=== PATIENT | female | born 1975 | race Hispanic/Latino ===

== ENCOUNTER → 2017-07-03 | Outpatient (CLI) | payer OTHER | LOC: RAH 08:36 | PROVIDERS: ATTEND Nurse Practitioner Family | DX: Z12.31 Encounter for screening mammogram for malignant neoplasm of breast (principal) | CPT/HCPCS: 77067 ==

== ENCOUNTER → 2020-09-28 | Outpatient (CLI) | payer OTHER | END | disposition home or self-care (01) | LOC: RAH 15:08 | PROVIDERS: ATTEND Physician Assistant Medical | DX: Z12.31 Encounter for screening mammogram for malignant neoplasm of breast (principal); Z00.01 Encounter for general adult medical examination with abnormal findings | CPT/HCPCS: 77067 ==

== ENCOUNTER → 2021-10-02 | Outpatient (CLI) | payer OTHER | END | disposition home or self-care (01) | LOC: RAH 09:45 | PROVIDERS: ATTEND Family Medicine | DX: Z12.31 Encounter for screening mammogram for malignant neoplasm of breast (principal) | CPT/HCPCS: 77067 ==

== ENCOUNTER → 2023-10-07 | Outpatient (CLI) | payer OTHER | END | disposition home or self-care (01) | LOC: RAH 10:26 | PROVIDERS: ATTEND Nurse Practitioner Family | DX: Z12.31 Encounter for screening mammogram for malignant neoplasm of breast (principal) | CPT/HCPCS: 77067 ==

== ENCOUNTER → 2024-09-28 | Outpatient (CLI) | payer OTHER ==
--- NOTE | 2024-09-28 15:31 | HMCIMG ---
MR SHOULDER LEFT WO HISTORY: Left shoulder impingement syndrome COMPARISON: None TECHNIQUE: MRI of the left shoulder was performed utilizing multiple pulse sequences in axial, coronal and sagittal planes. Patient was not given contrast through intravenous route. FINDINGS: Subchondral cyst formation is seen at the superolateral aspect. Hypertrophic degenerative changes are seen of the acromioclavicular joint. There is downward sloping of acromion in a medial to lateral direction encroaching upon the rotator cuff tendon and muscles. There is rotator cuff tendinosis with partial undersurface tear there are findings suspicious for subtle computer-aided of tendon tear. Tiny fluid is seen in the subacromial-subdeltoid bursa complex. If needed, MR arthrogram helpful. The glenoid labrum is intact. Bicipital tendon is seen within its groove. No appreciable amount of joint effusion is seen. IMPRESSION: 1. There is rotator cuff tendinosis with partial undersurface tear there are findings suspicious for subtle computer-aided of tendon tear. Tiny fluid is seen in the subacromial-subdeltoid bursa complex. If needed, MR arthrogram helpful. Subchondral cyst formations are seen involving the humeral head
== END | disposition home or self-care (01) ==
LOC: RAH 14:05
PROVIDERS: ATTEND Student in an Organized Health Care Education/Training Program
DX: M75.112 Incomplete rotator cuff tear or rupture of left shoulder, not specified as traumatic (principal); M19.012 Primary osteoarthritis, left shoulder; M75.42 Impingement syndrome of left shoulder; M67.814 Other specified disorders of tendon, left shoulder; M25.812 Other specified joint disorders, left shoulder
CPT/HCPCS: 73221

== ENCOUNTER → 2024-10-07 | Outpatient (CLI) | payer OTHER | END | disposition home or self-care (01) | LOC: RAH 08:30 | PROVIDERS: ATTEND Student in an Organized Health Care Education/Training Program | DX: Z12.31 Encounter for screening mammogram for malignant neoplasm of breast (principal) | CPT/HCPCS: 77063; 77067 ==